=== PATIENT | female | born 1955 ===

== ENCOUNTER 2020-11-24 09:45 | Inpatient (IN) | payer OTHER ==
[~2020-11-24] VITALS: Ht 154.9 cm; Wt 84.4 kg
== END 2020-12-03 11:12 | disposition home or self-care (01) | DRG 743 ==
LOC: O/R 12-01 04:50 → OB/GYN 12-01 04:50 → SURH 12-01 07:00 → OB/GYN 12-01 14:22
PROVIDERS: ADMIT Obstetrics & Gynecology Gynecologic Oncology; ATTEND Obstetrics & Gynecology Gynecologic Oncology
PROC: 0TN64ZZ Release Right Ureter, Percutaneous Endoscopic Approach (ICD-10-PCS; 2020-12-01)
PROC: 0UB74ZZ Excision of Bilateral Fallopian Tubes, Percutaneous Endoscopic Approach (ICD-10-PCS; 2020-12-01)
PROC: 0TN74ZZ Release Left Ureter, Percutaneous Endoscopic Approach (ICD-10-PCS; 2020-12-01)
PROC: 0UT24ZZ Resection of Bilateral Ovaries, Percutaneous Endoscopic Approach (ICD-10-PCS; 2020-12-01)
PROC: 0UT94ZZ Resection of Uterus, Percutaneous Endoscopic Approach (ICD-10-PCS; principal; 2020-12-01 07:00)
DX: D25.9 Leiomyoma of uterus, unspecified (principal); D39.0 Neoplasm of uncertain behavior of uterus; N83.292 Other ovarian cyst, left side